=== PATIENT | female | born 1985 | race Caucasian/White ===

== ENCOUNTER 2019-02-07 13:50 | Inpatient (IN) | payer BC ==
[~2019-02-07] VITALS: Ht 172.7 cm; Wt 70.5 kg
[2019-02-07] MEDS ORDERED: LACTATED RINGERS 1,000 ML IV SCH (14:04)
[2019-02-07] MEDS ORDERED: OXYTOCIN 30U/ 0.9% NaCL 500ML 500 ML IV ONE (14:04)
[2019-02-07] MEDS ORDERED: TERBUTALINE 1 MG/ML, 1ML IVPush PRN (14:30)
[2019-02-07] MEDS ORDERED: PLEASE ENTER ALLERGIES MC SCH ×2 (14:30→16:00)
[2019-02-07] MEDS ORDERED: ONDANSETRON 2MG/ML, 2ML IVPush PRN (14:30)
[2019-02-07] MEDS ORDERED: TERBUTALINE 1 MG/ML, 1ML SQ PRN (14:30)
[2019-02-07] MEDS ORDERED: FENTANYL PF 100 MCG/2ML IVPush PRN (14:30)
[2019-02-07] MEDS ORDERED: CALCIUM CARBONATE 500 MG TAB.CHEW PO PRN (14:30)
[2019-02-07] MEDS ORDERED: PLEASE ENTER HEIGHT AND WEIGHT MC SCH (14:30)
[2019-02-07] MEDS ORDERED: FENTANYL PF 100 MCG/2ML IV PRN (14:30)
[2019-02-07] MEDS ORDERED: LIDOCAINE 1%, 20ML ONE (14:32)
[2019-02-07] MEDS ORDERED: OXYTOCIN 10 UNITS/ML, 1ML ONE (14:33)
[2019-02-07] MEDS: OXYTOCIN 30U/ 0.9% NaCL 500ML 500 ML IV SCH (14:52)
[2019-02-07] MEDS ORDERED: METHYLERGONOVINE 0.2 MG/ML IM PRN (15:00)
[2019-02-07] MEDS ORDERED: ONDANSETRON 2MG/ML, 2ML IV PRN (15:00)
[2019-02-07] MEDS ORDERED: CARBOPROST TROMETHAMINE 250 MCG/ML, 1ML IM PRN (15:00)
[2019-02-07] MEDS ORDERED: ACETAMINOPHEN 325 MG TABLET PO PRN (15:00)
[2019-02-07] MEDS ORDERED: OXYTOCIN 10 UNITS/ML, 1ML IM PRN (15:00)
[2019-02-07] MEDS ORDERED: MISOPROSTOL 200 MCG TABLET PR PRN (15:00)
[2019-02-07] MEDS ORDERED: HYDROcodone/APAP 5/325 TABLET PO PRN ×2 (15:00)
[2019-02-07] MEDS ORDERED: DOCUSATE 100 MG CAPSULE PO PRN (15:00)
[2019-02-07] MEDS ORDERED: SIMETHICONE 80 MG CHEW TAB PO PRN (15:00)
[2019-02-07] MEDS ORDERED: NEWBORN KIT ONE (15:12)
[2019-02-07 16:27] LABS: MEAN CORPUSCULAR HEMOGLOBIN 32.3 pg (27.0-34.8); MEAN CORPUSCULAR HGB CONC 34.9 g/dL (32.4-35.8); MEAN CORPUSCULAR VOLUME 92.7 fL (80-100); MEAN PLATELET VOLUME 10.4 fL (7.4-10.4); PLATELET COUNT 192 x10^3/uL (130-400); RED BLOOD COUNT 4.18 x10^6/uL (3.82-5.3); RED CELL DISTRIBUTION WIDTH 12.9 % (9.6-15.2)
[2019-02-07 16:39] LABS: BASOPHILS % (AUTO) 0 % (0-1); EOSINOPHILS # (AUTO) 0.09 x10^3/uL (0-0.4); EOSINOPHILS % (AUTO) 1 % (1-7); LYMPHOCYTES # (AUTO) 0.47 x10^3/uL (1-3.4); LYMPHOCYTES % (AUTO) 2 % (22-44); MD SCAN; MONOCYTES # (AUTO) 0.13 x10^3/uL (0.2-0.8); MONOCYTES % (AUTO) 1 % (2-9); NEUTROPHILS % (AUTO) 97 % (42-75)
[2019-02-07] MEDS: IBUPROFEN 600 MG TABLET PO PRN (17:50)
[2019-02-07 17:54] VITALS: BP 114/73
[2019-02-07 20:30] VITALS: BP 104/70
[2019-02-08 00:14] VITALS: BP 108/72
[2019-02-08] MEDS: OXYTOCIN 30U/ 0.9% NaCL 500ML 500 ML IV SCH ×2 (00:52→10:52)
[2019-02-08] MEDS: IBUPROFEN 600 MG TABLET PO PRN ×3 (01:17→13:36)
[2019-02-08 04:11] VITALS: BP 105/68
[2019-02-08] MEDS ORDERED: PRENATAL VIT/IRON/FA 1 EACH TABLET PO SCH (09:00)
[2019-02-08 10:15] VITALS: BP 104/69
[2019-02-08] MEDS ORDERED: IBUP-1222 PO (13:43)
[2019-02-08] MEDS ORDERED: SENN-92 PO (13:44)
== END 2019-02-08 17:20 | disposition home or self-care (01) | DRG 807 ==
LOC: LDOP 13:50 → LDIP 13:59 → 2NW 16:50
PROVIDERS: ADMIT Obstetrics & Gynecology; ATTEND Obstetrics & Gynecology
PROC: 10E0XZZ Delivery of Products of Conception, External Approach (ICD-10-PCS; principal; 2019-02-07)
PROC: 10907ZC Drainage of Amniotic Fluid, Therapeutic from Products of Conception, Via Natural or Artificial Opening (ICD-10-PCS; 2019-02-07)
PROC: 0HQ9XZZ Repair Perineum Skin, External Approach (ICD-10-PCS; 2019-02-07)
DX: O48.0 Post-term pregnancy (principal); Z37.0 Single live birth; Z3A.41 41 weeks gestation of pregnancy; O70.0 First degree perineal laceration during delivery
CPT/HCPCS: 36415; 85025; 86850; 86900; G0378